=== PATIENT | male | born 1960 | race Caucasian/White ===

== ENCOUNTER 2022-02-25 20:41 | Emergency (ER) | payer SELFPAY ==
[~2022-02-25] VITALS: Ht 155 cm; Wt 83.0 kg
[2022-02-25 21:01] LABS: BASOPHILS # (AUTO) 0.1 10^3/uL (0.0-0.1); BASOPHILS % (AUTO) 1 % (0-10); EOSINOPHILS # (AUTO) 0.2 10^3/uL (0.0-0.3); EOSINOPHILS % (AUTO) 2 % (0-10); HEMATOCRIT 51 % (40-54); HEMOGLOBIN 17.1 g/dL (13.3-17.7); LYMPHOCYTES # (AUTO) 2.2 10^3/uL (1.0-4.0); LYMPHOCYTES % (AUTO) 21 % (12-44); MEAN CORPUSCULAR HEMOGLOBIN 31 pg (25-34); MEAN CORPUSCULAR HGB CONC 34 g/dL (32-36); MEAN CORPUSCULAR VOLUME 90 fL (80-99); MEAN PLATELET VOLUME 9.8 fL (9.0-12.2); MONOCYTES # (AUTO) 1.3 10^3/uL (0.0-1.0); MONOCYTES % (AUTO) 13 % (0-12); NEUTROPHILS # (AUTO) 6.4 10^3/uL (1.8-7.8); NEUTROPHILS % (AUTO) 63 % (42-75); PLATELET COUNT 347 10^3/uL (130-400); WHITE BLOOD COUNT 10.2 10^3/uL (4.3-11.0)
--- NOTE | 2022-02-25 21:10 | ED General ---
General Chief Complaint: Chest Pain Stated Complaint: SOA - CHEST PAIN - COUGH Nursing Triage Note: COMPLAINT OF CHEST PAIN STATS ON/OFF ALL DAYS. DENIES PAIN RADIATING. PATIENT COMPLAINT OF SOB. STATES "CANT GET ANY AIR" CARDIAC HX 8 YRS AGO. CHEMO LAST DOSE NOVEMBER. 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) History of Present Illness Date Seen by Provider: Feb 25, 2022 Time Seen by Provider: 20:47 Initial Comments PT ARRIVES VIA POV FROM HOME C/O PRODUCTIVE COUGH WITH CLEAR SPUTUM C/O SHORTNESS OF BREATH C/O CHEST PAIN IN MID CHEST PT STATES HE HAS HAD THESE SYMPTOMS "FOR OVER A YEAR" BUT NEVER SOUGHT CARE STATES SYMPTOMS BEGAN THIS AM AROUND 0900 NO RADIATION OF PAIN NOTHING WORSENS OR IMPROVES PAIN NO FEVER/SWEATS/CHILLS NO SWELLING IN LEGS/FEET OR PAIN IN CALVES NO PAIN WITH BREATHING NO LOSS OF TASTE/SMELL PT SMOKES UP TO 1 1/2 PPD, DENIES DX OF LUNG PROBLEMS, BUT PT DOES NOT HAVE PCP PT HAS NOT HAD COVID OR FLU VACCINES PT STATES HE DOES NOT HAVE A DR. ANYWHERE --NEVER HAD A PRIMARY CARE, "NEVER GO TO THE DR" PT HAS BEEN SEEING AN UNKNOWN ONCOLOGIST IN THE LAST YEAR FOR DX OF MELANOMA--DX 06/2021 AND STOPPED ORAL CHEMO IN NOVEMBER 2021 PT LIVES IN [place], [place]. STATES HE IS JUST HERE VISITING. Allergies and Home Medications Allergies Coded Allergies: No Known Drug Allergies (Unverified , 02/25/22) Patient Home Medication List Fluticasone/Salmeterol (Airduo Respiclick 113-14 Mcg) 113 Mcg-14 Mcg/Actuation Aer.pow.ba, 1 EACH IH BID Prescribed by: JACQUELINE CAUSEY on 02/25/222238 Methylprednisolone (Medrol) 4 Mg Tab.ds.pk, 4 MG PO UD Prescribed by: JACQUELINE CAUSEY on 02/25/222238 Past Zsrmmqo-Dbrqpl-Vygsxf Hx Patient Social History Tobacco Use?: Yes Tobacco type used: Cigarettes Smoking Status: Current Everyday Smoker Substance use?: No Alcohol Use?: Yes Pt feels they are or have been: No Immunizations Up To Date Influenza Vaccine Up-to-Date: No; Not Current First/Initial COVID19 Vaccinat: N/A Second COVID19 Vaccination Ramy: N/A Third COVID19 Vaccination Date: N/A Past Medical History Surgeries: Yes (MELANOMA & BCC REMOVED;CARDIAC ABLATION;LUMBAR SPINE SURGERY) Cardiac, Orthopedic Respiratory: No Cardiac: Yes (S/P CARDIAC ABLATION AGE 54 FOR UNKNOWN ARRHTYMIA) Irregular Heartbeat Neurological: No Genitourinary: No Gastrointestinal: No Musculoskeletal: Yes (LUMBAR SPINE SURGERY) Chronic Back Pain Endocrine: No HEENT: No (GLASSES) Cancer: Yes Skin, Melanoma Did You Recieve Any Treatments: Yes What Type of Treatment Did You: Chemotherapy, Surgical Intervention MELANOMA DX 06/2021--SURGICALLY REMOVED FROM BACK ORAL CHEMO STOPPED IN NOVEMBER 2021. SURGICAL REMOVAL OF BASAL CELL SKIN CANCERS FROM FACE, HANDS Psychosocial: No Integumentary: Yes (SKIN CANCER) Blood Disorders: No Family Medical History SOCIAL HISTORY: -SMOKES 1 1/2 PPD -ETOH--6 PACK/DAY BY HISTORY, DENIES RECENT USE -DENIES DRUG USE PAST SURGICAL HISTORY: -MELANOMA REMOVED FROM BACK -REMOVALS OF BASAL CELL CANCERS -LUMBAR SPINE SURGERY -CARDIAC ABLATION FOR ARRHYTHMIA AGE 54 Physical Exam Vital Signs Vital Signs - First Documented 02/25/22 02/25/22 20:48 20:53 Temp 36.3 Pulse 89 Resp 20 B/P (MAP) 169/100 (123) Pulse Ox 94 O2 Delivery Room Air O2 Flow Rate 2.00 Capillary Refill : Less Than 3 Seconds Height, Weight, BMI Height: '" Weight: lbs. oz. kg; 34.00 BMI Method: Focused Exam Lactate Level 02/25/22 21:00: Lactic Acid Level 1.00 Lactic Acid Level Laboratory Tests Test 02/25/22 21:00 Lactic Acid Level 1.00 MMOL/L (0.50-2.00) Progress/Results/Core Measures Suspected Sepsis SIRS Temperature: Pulse: 89 Respiratory Rate: 20 Laboratory Tests 02/25/22 20:52: White Blood Count 10.2 Blood Pressure 169 /100 Mean: 123 02/25/22 21:00: Lactic Acid Level 1.00 Laboratory Tests 02/25/22 20:52: Creatinine 1.11, INR Comment 0.9, Platelet Count 347, Total Bilirubin 0.6 Results/Orders Lab Results Laboratory Tests Test 02/25/22 20:52 02/25/22 20:54 02/25/22 21:00 02/25/22 21:32 Range/Units White Blood Count 10.2 4.3-11.0 10^3/uL Red Blood Count 5.61 H 4.30-5.52 10^6/uL Hemoglobin 17.1 13.3-17.7 g/dL Hematocrit 51 40-54 % Mean Corpuscular Volume 90 80-99 fL Mean Corpuscular Hemoglobin 31 25-34 pg Mean Corpuscular Hemoglobin Concent 34 32-36 g/dL Red Cell Distribution Width 12.2 10.0-14.5 % Platelet Count 347 130-400 10^3/uL Mean Platelet Volume 9.8 9.0-12.2 fL Immature Granulocyte % (Auto) 1 % Neutrophils (%) (Auto) 63 42-75 % Lymphocytes (%) (Auto) 21 12-44 % Monocytes (%) (Auto) 13 H 0-12 % Eosinophils (%) (Auto) 2 0-10 % Basophils (%) (Auto) 1 0-10 % Neutrophils # (Auto) 6.4 1.8-7.8 10^3/uL Lymphocytes # (Auto) 2.2 1.0-4.0 10^3/uL Monocytes # (Auto) 1.3 H 0.0-1.0 10^3/uL Eosinophils # (Auto) 0.2 0.0-0.3 10^3/uL Basophils # (Auto) 0.1 0.0-0.1 10^3/uL Immature Granulocyte # (Auto) 0.1 0.0-0.1 10^3/uL Erythrocyte Sedimentation Rate 4 0-30 MM/HR Prothrombin Time 12.6 12.2-14.7 SEC INR Comment 0.9 0.8-1.4 Activated Partial Thromboplast Time 37 H 24-35 SEC D-Dimer 0.51 H 0.00-0.49 UG/ML Sodium Level 138 135-145 MMOL/L Potassium Level 4.0 3.6-5.0 MMOL/L Chloride Level 101 98-107 MMOL/L Carbon Dioxide Level 26 21-32 MMOL/L Anion Gap 11 5-14 MMOL/L Blood Urea Nitrogen 8 7-18 MG/DL Creatinine 1.11 0.60-1.30 MG/DL Estimat Glomerular Filtration Rate 76 BUN/Creatinine Ratio 7 Glucose Level 111 H 70-105 MG/DL Calcium Level 9.9 8.5-10.1 MG/DL Corrected Calcium 9.5 8.5-10.1 MG/DL Magnesium Level 2.3 1.6-2.4 MG/DL Total Bilirubin 0.6 0.1-1.0 MG/DL Aspartate Amino Transf (AST/SGOT) 16 5-34 U/L Alanine Aminotransferase (ALT/SGPT) 18 0-55 U/L Alkaline Phosphatase 96 40-136 U/L Total Creatine Kinase 93 30-200 U/L Creatine Kinase MB 2.4 <6.6 NG/ML Troponin I < 0.028 <0.028 NG/ML C-Reactive Protein High Sensitivity 1.14 H 0.00-0.50 MG/DL B-Type Natriuretic Peptide < 10.0 <100.0 PG/ML Total Protein 7.9 6.4-8.2 GM/DL Albumin 4.5 3.2-4.5 GM/DL Procalcitonin 0.03 <0.10 NG/ML Influenza Type A (RT-PCR) Not Detected Not Detecte Influenza Type B (RT-PCR) Not Detected Not Detecte SARS-CoV-2 RNA (RT-PCR) Not Detected Not Detecte Lactic Acid Level 1.00 0.50-2.00 MMOL/L Urine Color YELLOW Urine Clarity CLEAR Urine pH 6.5 5-9 Urine Specific [place] <=1.005 1.016-1.022 Urine Protein NEGATIVE NEGATIVE Urine Glucose (UA) NEGATIVE NEGATIVE Urine Ketones NEGATIVE NEGATIVE Urine Nitrite NEGATIVE NEGATIVE Urine Bilirubin NEGATIVE NEGATIVE Urine Urobilinogen 0.2 < = 1.0 MG/DL Urine Leukocyte Esterase NEGATIVE NEGATIVE Urine RBC (Auto) TRACE-I H NEGATIVE Urine RBC 0-2 /HPF Urine WBC NONE /HPF Urine Squamous Epithelial Cells NONE /HPF Urine Renal Epithelial Cells NONE /HPF Urine Crystals NONE /LPF Urine Bacteria NEGATIVE /HPF Urine Casts NONE /LPF Urine Mucus NEGATIVE /LPF Urine Culture Indicated CULTURE PENDING My Orders Orders - JACQUELINE CAUSEY DO Ed Iv/Invasive Line Start (02/25/22 20:47) Ekg Tracing (02/25/22 20:47) O2 (02/25/22 20:47) Monitor-Rhythm Ecg Trace Only (02/25/22 20:47) Cbc With Automated Diff (02/25/22 20:47) Comprehensive Metabolic Panel (02/25/22 20:47) Fibrin Degradation Products (02/25/22 20:47) Procalcitonin (Pct) (02/25/22 20:47) Hs C Reactive Protein (02/25/22 20:47) Erythrocyte Sedimentation Rate (02/25/22 20:47) Blood Culture (02/25/22 20:47) Chest 1 View, Ap/Pa Only (02/25/22 20:47) Covid 19 Inhouse Test (02/25/22 20:47) Sputum Culture (02/25/22 20:47) Urinalysis (02/25/22 20:47) Urine Culture (02/25/22 20:47) Protime With Inr (02/25/22 20:47) Partial Thromboplastin Time (02/25/22 20:47) Ed Iv/Invasive Line Start (02/25/22 20:47) Ed Iv/Invasive Line Start (02/25/22 20:47) Vital Signs Adult Sepsis Patie Q15M (02/25/22 20:47) O2 (02/25/22 20:47) Remove Rings In Anticipation O (02/25/22 20:47) Lactic Acid Analyzer (02/25/22 20:47) Influenza A And B By Pcr (02/25/22 20:47) Isolation Central Supply Req (02/25/22 20:47) Bnp Harmony (02/25/22 20:47) Creatine Kinase (02/25/22 20:47) Creatine Kinase Mb (02/25/22 20:47) Magnesium (02/25/22 20:47) Troponin I [place] (02/25/22 20:47) Ct Angio Chest W (02/25/22 21:35) Iohexol Injection (Omnipaque 350 Mg/Ml 1 (02/25/22 22:00) Sodium Chloride Flush (Catheter Flush Sy (02/25/22 22:00) Ns (Ivpb) (Sodium Chloride 0.9% Ivpb Bag (02/25/22 22:00) Medications Given in ED Current Medications Medications Dose Ordered Sig/Jaziel Route Start Time Stop Time Status Last Admin Dose Admin Iohexol 100 ml ONCE ONCE IV 02/25/22 22:00 02/25/22 22:01 DC 02/25/22 21:55 85 ML Sodium Chloride 10 ml NEEDED PRN IV 02/25/22 22:00 02/25/22 21:55 10 ML Sodium Chloride 100 ml ONCE ONCE IV 02/25/22 22:00 02/25/22 22:01 DC 02/25/22 21:55 80 ML Vital Signs/I&O 02/25/22 02/25/22 20:48 20:53 Temp 36.3 Pulse 89 Resp 20 B/P (MAP) 169/100 (123) Pulse Ox 94 97 O2 Delivery Room Air Nasal Cannula O2 Flow Rate 2.00 Capillary Refill : Less Than 3 Seconds Blood Pressure Mean: 123 Progress Note : Progress Note NO COUGH NO DYSPNEA NO HYPOXIA NO FEVER NO SYMPTOMS OF ANY KIND DURING ER STAY Departure Impression Primary Impression: COPD (chronic obstructive pulmonary disease) Disposition: HOME, SELF-CARE Condition: Stable Departure-Patient Inst. Decision time for Depature: 22:35 Referrals: NO,LOCAL PHYSICIAN (PCP/Family) Primary Care Physician Patient Instructions: COPD Exacerbation, Adult ED, How to Use Your Metered Dose Inhaler (Adults) Add. Discharge Instructions: NO SMOKING FOLLOW UP WITH OF CHOICE THIS WEEK FOR FURTHER CARE--CALL IN THE MORNING TO SCHEDULE APPOINTMENT RETURN TO ER IF SYMPTOMS WORSEN All discharge instructions reviewed with patient and/or family. Voiced understanding. Scripts Fluticasone/Salmeterol (Airduo Respiclick 113-14 Mcg) 113 Mcg-14 Mcg/Actuation Aer.pow.ba 1 EACH IH BID, #1 GM Prov: JACQUELINE CAUSEY DO 02/25/22 Methylprednisolone (Medrol) 4 Mg Tab.ds.pk 4 MG PO UD for 6 Days, #21 PKG PER DOSE PACK INSTRUCTIONS Prov: JACQUELINE CAUSEY DO 02/25/22 JACQUELINE CAUSEY DO Feb 25, 2022 21:10
--- NOTE | 2022-02-25 21:15 | Diagnostic Imaging Report ---
INDICATION: Shortness of breath. There are emphysematous changes in the lungs with air trapping. There are no infiltrates, effusions or pneumothoraces. IMPRESSION: COPD. Dictated by: Dictated on workstation # [id number]
[2022-02-25 21:17] LABS: ALBUMIN 4.5 GM/DL (3.2-4.5); CHLORIDE 101 MMOL/L (98-107); ERYTHROCYTE SEDIMENTATION RATE 4 MM/HR (0-30); SODIUM 138 MMOL/L (135-145)
[2022-02-25 21:18] LABS: CALCIUM 9.9 MG/DL (8.5-10.1)
[2022-02-25 21:19] LABS: FIBRIN DEGRADATION PRODUCTS 0.51 UG/ML (0.00-0.49); GLUCOSE 111 MG/DL (70-105); INR 0.9 (0.8-1.4); PROTHROMBIN TIME PATIENT 12.6 SEC (12.2-14.7)
[2022-02-25 21:20] LABS: TOTAL PROTEIN 7.9 GM/DL (6.4-8.2)
[2022-02-25 21:21] LABS: BILIRUBIN,TOTAL 0.6 MG/DL (0.1-1.0); CARBON DIOXIDE 26 MMOL/L (21-32)
[2022-02-25 21:23] LABS: ALKALINE PHOSPHATASE 96 U/L (40-136); CREATININE SERUM 1.11 MG/DL (0.60-1.30); GFR ESTIMATED 76
[2022-02-25 21:24] LABS: BUN/CREATININE RATIO 7
[2022-02-25 21:26] LABS: ALANINE AMINOTRANSFERASE 18 U/L (0-55); MAGNESIUM 2.3 MG/DL (1.6-2.4)
[2022-02-25 21:27] LABS: CREATINE KINASE 93 U/L (30-200)
[2022-02-25 21:33] LABS: CREATINE KINASE MB 2.4 NG/ML (<6.6)
[2022-02-25 21:38] LABS: BILIRUBIN,URINE NEGATIVE (NEGATIVE); CLARITY,URINE CLEAR; COLOR,URINE YELLOW; GLUCOSE, URINE (UA) NEGATIVE (NEGATIVE); KETONES,URINE NEGATIVE (NEGATIVE); LEUKOCYTE ESTERASE ,URINE NEGATIVE (NEGATIVE); NITRITE,URINE NEGATIVE (NEGATIVE); PH,URINE 6.5 (5-9); PROTEIN,URINE NEGATIVE (NEGATIVE)
[2022-02-25 21:44] LABS: BACTERIA,URINE NEGATIVE /HPF; RBC,URINE 0-2 /HPF
[2022-02-25] MEDS ORDERED: IOHEXOL 350 MG/ML 100 ML (OMNIPAQUE 350) VIAL IV ONE (22:00)
[2022-02-25] MEDS ORDERED: CATHETER FLUSH 10 ML SYR IV PRN (22:00)
[2022-02-25] MEDS ORDERED: NS 100 ML (IVPB) BAG IV ONE (22:00)
--- NOTE | 2022-02-25 22:10 | Diagnostic Imaging Report ---
PROCEDURE: CT angiography of the chest with contrast. TECHNIQUE: Multiple contiguous axial images were obtained through the chest after uneventful bolus administration of intravenous contrast. 3D reconstructed CTA MIP acquisitions were also performed. Auto Exposure Controls were utilized during the CT exam to meet ALARA standards for radiation dose reduction. INDICATION: Chest pain. FINDINGS: There are emphysematous changes in the lungs. There are no infiltrates, effusions or pneumothoraces. Aorta is unremarkable. There are no pulmonary emboli. There is no right ventricular strain. IMPRESSION: Severe emphysema. No pulmonary emboli or other acute abnormality is seen in the chest. Dictated by: Dictated on workstation # [id number]
[2022-02-25] MEDS ORDERED: METH4TAB PO (22:39)
[2022-02-25] MEDS ORDERED: FLUT1AER7 IH (22:39)
[2022-02-25 22:45] VITALS: BP 132/98
== END 2022-02-25 22:45 | disposition home or self-care (01) ==
LOC: ER 20:43
DX: J44.9 Chronic obstructive pulmonary disease, unspecified (principal); F17.210 Nicotine dependence, cigarettes, uncomplicated; Z85.820 Personal history of malignant melanoma of skin; Z20.822 Contact with and (suspected) exposure to COVID-19
CPT/HCPCS: 36415; 71045; 71275; 80053; 81000; 82550; 82553; 83605; 83735; 83880; 84145; 84484; 85025; 85379; 85610; 85652; 85730; 86141; 87040; 87088; 87636; 93005; 93041